=== PATIENT | male | born 1955 | race American Indian/Alaskan Native ===

== ENCOUNTER 2020-11-28 02:33 | Emergency (ER) | payer MEDICARE ==
--- NOTE | 2020-11-28 02:40 | Emergency Department Report ---
ED Extremity Problem HPI - General Stated complaint: CARDIAC ARREST Time Seen by Provider: 11/28/20 02:35 - History of Present Illness Initial comments: Patient is a 65-year-old F [place] male who had a recent diagnosis of COVID-19 positive test (U07.1, COVID-19) with Acute Pneumonia (J12.89, Other viral pneumonia) (If respiratory failure or sepsis present, add as separate assessment), Who is presenting in cardiac arrest. According to his daughter the patient had paramedics come out earlier in the day for shortness of breath was vital signs appeared within normal limits at that time. Patient per paramedics he gotten up to go to the bathroom when he collapsed. CPR was initiated at the home. Paramedics arrived and the patient was in asystole. Intubated with a Kun airway given 3 rounds of epi with good CPR being performed. Total downtime was 20 minutes before his arrival. ED Review of Systems ROS: Stated complaint: CARDIAC ARREST Other details as noted in HPI Comment: Unobtainable due to pts medical conditions ED Physical Exam - Eye Eye exam: Absent: normal appearance (Pupils fixed and dilated) - ENT ENT exam: Present: mucous membranes moist - Neck Neck exam: Present: normal inspection - Respiratory Respiratory exam: Present: other (Lungs symmetrical with bagging) - Cardiovascular Cardiovascular Exam: Present: other (No spontaneous heart tones) - GI/Abdominal GI/Abdominal exam: Present: soft. Absent: normal bowel sounds - Rectal Rectal exam: Present: deferred - Neurological Exam Neurological exam: Absent: alert, oriented X3 - Psychiatric Psychiatric exam: Present: normal affect, normal mood - Skin Skin exam: Present: warm, dry, intact, normal color. Absent: rash ED Medical Decision Making - Medical Decision Making On the patient's arrival the patient had fixed and dilated pupils. Good CPR with ACLS protocols were performed for greater than 20 minutes and the patient was pronounced on arrival. Time of 207. Family's been notified. Critical care attestation.: If time is entered above; I have spent that time in minutes in the direct care of this critically ill patient, excluding procedure time. ED Disposition Clinical Impression: Cardiopulmonary arrest, Pneumonia due to COVID-19 virus Disposition: 20 Is pt being admited?: No Does the pt Need Aspirin: No Condition: Stable Instructions: Bacterial Pneumonia (ED) Time of Disposition: 02:50
== END 2020-11-28 10:26 ==
LOC: ED 02:33
DX: U07.1 COVID-19 (principal); I46.9 Cardiac arrest, cause unspecified; J12.82 Pneumonia due to coronavirus disease 2019
CPT/HCPCS: 92950